=== PATIENT | female | born 1950 | race Two or more races ===

== ENCOUNTER 2019-03-08 11:02 | Outpatient (CLI) | payer OTHER | END 2019-03-08 11:06 | disposition home or self-care (01) | LOC: RX STUDY 11:02 | DX: N39.46 Mixed incontinence (principal); N81.11 Cystocele, midline | CPT/HCPCS: 51600; 74430; Q9958 ==

== ENCOUNTER 2019-03-15 08:46 | Outpatient (CLI) | payer OTHER | END 2019-03-15 08:48 | disposition home or self-care (01) | LOC: RX STUDY 08:46 | DX: Z12.11 Encounter for screening for malignant neoplasm of colon (principal) ==